=== PATIENT | male | born 1985 | race Caucasian/White ===

== ENCOUNTER 2017-04-01 19:23 | Emergency (ER) | payer BC ==
[2017-04-01 19:26] VITALS: BP 150/90
--- NOTE | 2017-04-01 21:16 | RAD ---
HISTORY: Second index finger laceration COMPARISONS: None VIEWS: 3, Frontal, lateral, and oblique views of the second digit of the left hand FINDINGS: BONE DENSITY: Normal. BONES: There is no displaced fracture. JOINTS: There is no arthropathy. ALIGNMENT: There is no dislocation. SOFT TISSUES: Unremarkable. OTHER FINDINGS: None. IMPRESSION: NO ACUTE OSSEOUS INJURY. IF SYMPTOMS PERSIST, RECOMMEND REPEAT IMAGING.
--- NOTE | 2017-04-01 21:21 | ED ---
Upper Extremity Pain - HPI Summary HPI Summary: Rt hand dominant pt here w/ Lt index finger laceration while using a clean knife earlier tonight - slipped and accidentally cut himself. Bled but stopped. Here because it appeared to be deep while he was running it under water to clean - thinks he may have tendon damage - saw silver tendon moving within cut but no tear along edge or fraying. Moving finger well and denies numbness, tingling, weakness. Imms are UTD. - History of Current Complaint Chief Complaint: EDLacSutureRecheck Stated Complaint: FINGER LAC FROM A KNIFE Time Seen by Provider: 04/01/17 20:38 Hx Obtained From: Patient PMH/Surg Hx/FS Hx/Imm Hx Previously Healthy: Yes Endocrine/Hematology History: Denies: Hx Anticoagulant Therapy, Hx Blood Disorders Infectious Disease History: No Infectious Disease History: Denies: Traveled Outside the [place] in Last 30 Days - Social History Lives: With Family Alcohol Use: None Hx Substance Use: No Substance Use Type: Reports: None Hx Tobacco Use: No Smoking Status (MU): Never Smoked Tobacco Review of Systems Positive: no symptoms reported Musculoskeletal: Negative Skin: Other - see HPI Neurological: Negative Psychological: Normal All Other Systems Reviewed And Are Negative: Yes Physical Exam Triage Information Reviewed: Yes Vital Signs On Initial Exam: Initial Vitals Temp Pulse Resp BP Pulse Ox 98.2 F 69 16 150/90 99 04/01/17 19:25 04/01/17 19:25 04/01/17 19:25 04/01/17 19:25 04/01/17 19:25 Vital Signs Reviewed: Yes Appearance: Positive: Well-Appearing, No Pain Distress, Well-Nourished Skin: Positive: Warm - 2cm linear lac over dorsal aspect of Lt PIP of index finger - clean, no bleeding, no tendon visualized Head/Face: Positive: Normal Head/Face Inspection Eyes: Positive: EOMI ENT: Positive: Hearing grossly normal Respiratory/Lung Sounds: Positive: Breath Sounds Present Cardiovascular: Positive: Pulses are Symmetrical in both Upper and Lower Extremities Musculoskeletal: Positive: Normal, Strength/ROM Intact Neurological: Positive: Normal, Sensory/Motor Intact, Alert, Oriented to Person Place, Time Psychiatric: Positive: Normal Procedures - Laceration/Wound Repair 1 Location: upper extremity - Lt dorsal index finger, PIP joint Description: Linear Anesthesia: Digital, 1.0%, Lido Length, Depth and Shape: 2cm x 3mm - no tendon visualized, no nerve or vessel visualized Betadine Prep?: Yes Irrigated w/ Saline (ccs): 100 - iodine + saline solution Laceration/Wound Explored: clean Closure: Skin Adhesive, SteriStrips Layer Closure?: No Sterile Dressing Applied?: Yes - steristrips and dermabond + splint Diagnostics - Vital Signs Vital Signs Temp Pulse Resp BP Pulse Ox 04/01/17 20:53 98.2 F 69 16 150/90 99 04/01/17 19:25 98.2 F 69 16 150/90 99 - Laboratory Lab Statement: Any lab studies that have been ordered have been reviewed, and results considered in the medical decision making process. Course/Dx - Course Course Of Treatment: Pt here w/ laceration to Lt index finger. 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 He does not have weakness but has some pain in the area with resisted extension of his finger. Wound cleaned and opened but only subcutaneous tissue observed - no tendon visualized. Pt did wait for repair hours after injury so there is a possibility he has a <50% tendon tear. Will rx anbx and place in splint with close f/u with hand specialist. Pt agrees to rest in splint and call Tuesday for appointment. - Diagnoses Provider Diagnoses: Laceration of left index finger with tendon involvement Discharge - Discharge Plan Condition: Stable Disposition: HOME Prescriptions: Cephalexin CAP* [Keflex CAP*] 500 mg PO QID #38 cap Patient Education Materials: Care For Your Stitches (ED), Splint Care (ED), Finger Laceration (ED), Tendon Laceration (ED) Referrals: Linda Kohler MD [Medical Doctor] - Additional Instructions: Keep dressing clean, dry and intact. Keep splint in place at all times to protect finger from movement and prevent further injury to tendon. Your tendon was not clearly visualized tonight however given your report and injury, there is suspicion that there may be a tendon injury, ranging from contusion to partial laceration (<50%). Follow-up with hand specialist for wound check. Call Tuesday to schedule an appointment. Rest, ice, elevate for pain, swelling. You may also take ibuprofen with food for pain, swelling. *If you develop swelling, redness, streaking, purulent drainage, fever, chills, seek medical attention sooner
[2017-04-01] MEDS ORDERED: Cephalexin CAP* 500 MG PO ONE ×2 (23:56)
== END 2017-04-02 00:17 | disposition home or self-care (01) ==
LOC: ED 19:23
DX: S61.211A Laceration without foreign body of left index finger without damage to nail, initial encounter (principal); S56.422A Laceration of extensor muscle, fascia and tendon of left index finger at forearm level, initial encounter; W26.0XXA Contact with knife, initial encounter; Y93.G1 Activity, food preparation and clean up; Y92.9 Unspecified place or not applicable
CPT/HCPCS: 12001; 73140; 99282; A9270-GY